=== PATIENT | female | born 1990 | race Caucasian/White ===

== ENCOUNTER 2019-04-30 17:45 | Emergency (ER) | payer SELFPAY ==
[2019-04-30 17:51] VITALS: BP 107/77; PULSE 101; RESP 18; TEMP 36.4; O2SAT 97; BMI 25.0
--- NOTE | 2019-04-30 22:55 | ED_ITS ---
Entered by Nanda Sprague, acting as scribe for Glen Beltre MD Apr 30, 2019 17:45 HPI - Psych General: Chief Complaint: Psychiatric Symptoms Stated Complaint: mhe Time Seen by Provider: 04/30/19 22:50 Source: patient Mode of arrival: ambulatory Limitations: no limitations History of Present Illness: HPI Narrative: 28 yo f came to the er for meds refill. Pt states that she needs to go to the stress unit because she is homeless. complaint: other Duration: constant Relieving factors: none Exacerbating factors: none Associated psychiatric symptoms: none Associated symptoms: Reports no associated symptoms; Deny depression Review of Systems General: Reports: other (negative unless marked) Const: Denies: fever, chills, body aches or change in appetite Eyes: Denies: blurry vision or eye discomfort ENMT: Denies: throat pain or dental pain Card: Denies: chest pain Resp: Denies: shortness of breath GI: Denies: abdominal pain, nausea, vomiting or diarrhea : Denies: painful urination Musc: Denies: neck pain or back pain Skin/Breast: Denies: rash Neuro: Denies: headache Psych: Denies: depression Antoine/Lymph: Denies: easy bruising All/Imm: Denies: hives PFSH ED PFSH: Statuses (acute, chronic, etc) shown below reflect problem list status as previously entered and may not be historically accurate Social History Smoking and tobacco status: current every day smoker Female Reproductive History: Date of last menstrual period: 04/30/19 Physical Exam Const: COMMON NORMALS: no apparent distress, oriented x3 and healthy appearing HENMT: COMMON NORMALS: normocephalic and head/scalp atraumatic HEAD & SCALP: normocephalic and atraumatic Eye: COMMON NORMALS: PERRL and EOMs intact bilaterally PUPIL: Yes PERRL Neck/C-Spine: COMMON NORMALS: full ROM and supple Chest: COMMONS NORMALS: inspection of chest normal and palpation of chest normal Resp: COMMON NORMALS: normal respiratory effort, no retractions, no use of accessory muscles and clear to auscultation bilaterally AUSCULTATION: clear to auscultation bilaterally Cardio: COMMON NORMALS: regular rate, regular rhythm and no murmurs RATE: regular rate RHYTHM: regular rhythm GI: COMMON NORMALS: normal to inspection, nondistended, normoactive bowel sounds, soft to palpation, non-tender and no masses PALPATION: Yes soft Extremity: COMMON NORMALS: normal to inspection and full ROM Neuro: COMMON NORMALS: oriented x3, moves all extremities and no focal motor deficits Psych: COMMON NORMALS: mental status grossly normal, thought process normal and cooperative THOUGHT PROCESS: normal thought process Skin: COMMON NORMALS: no rashes or lesions noted and no wounds GENERAL SKIN EXAM: no rashes or lesions noted MDM - Psych MDM Narrative: Medical decision making narrative: Patient presents here with depression. Her main complaint she stated to me was that she needed a place to stay tonight. She denied any suicidality or homicidality. I informed her she does not meet criteria for admission. Patient refused any refills for meds. Patient is stable for discharge. Discharge Plan Discharge Patient Disposition: Home, Self-Care Clinical Impression: Depression Qualifiers: Depression Type: unspecified Qualified Code(s): F32.9 - Major depressive disorder, single episode, unspecified Condition: Stable Discharge Orders: Discharge Order (Routine); Ordered 04/30/19 Ordered By: Glen Beltre Discharge Diet: Advance as tolerated Discharge Activity: Resume usual activity Patient Instructions: Depression (ED) Discharge Date/Time: 04/30/19 23:18 Coding Level of Care Code ED Community Arts Worker for Calude Martinez The documentation recorded by the Celestine solares Stephanie Lyn, accurately reflects the service I personally performed and the decisions made by , Glen Beltre MD Apr 30, 2019 17:45
[2019-04-30] MEDS: haloperidol 5 mg Tablet PO (23:12)
--- NOTE | 2019-04-30 23:15 | PC.NURSE ---
Nurse went in to discharge pt and pt very hostile towards staff-unhappy with the fact that she is not being admitted. Pt did not allow nurse to take vital signs. Pt did not sign discharge paperwork. Pt did not take discharge paperwork with her. Pt appeared alert and oriented upon departure.
== END 2019-04-30 23:18 | disposition home or self-care (01) ==
PROVIDERS: Emergency Provider Emergency Medicine
DX: F32.9 Major depressive disorder, single episode, unspecified (principal); F17.210 Nicotine dependence, cigarettes, uncomplicated
CPT/HCPCS: 99281; 99283

== ENCOUNTER 2019-05-01 11:16 | Inpatient (IN) | payer SELFPAY ==
--- NOTE | 2019-05-01 11:18 | ED_ITS ---
Entered by Roxana Phillips, acting as scribe for Manohar Tyler DO HPI - General Adult General: Chief complaint: Allergic Reaction Stated complaint: reaction to haldol/SI Time Seen by Provider: 05/01/19 11:18 Source: EMS Mode of arrival: EMS Limitations: no limitations History of Present Illness: HPI narrative: pt states she is having a reaction to Haldol. pt states this occurred in the past when giving haldol. pt states it is hard to open mouth and move neck due to jaw being locked. pt denies any other symptoms at this time. MD complaint: lock jaw Onset (ago): day(s) (last night) Location: mouth Radiation: non-radiation Severity: moderate Pain Consistency: constant Relieving factors: none Exacerbating factors: movement (of jaw) Treatments prior to arrival: none Review of Systems General: Reports: 10 or more systems reviewed and unremarkable except in HPI and below PFSH ED PFSH: Statuses (acute, chronic, etc) shown below reflect problem list status as previously entered and may not be historically accurate Social History Smoking and tobacco status: current every day smoker Female Reproductive History: Date of last menstrual period: 04/30/19 Physical Exam Const: COMMON NORMALS: no apparent distress, average body habitus, oriented x3, no limitations, healthy appearing, alert and well nourished Eye: COMMON NORMALS: PERRL, EOMs intact bilaterally, conjunctivae normal, no scleral icterus, no papilledema, normal visual piedra by confrontation and fundi normal bilaterally CONJUNCTIVA: Yes conjunctivae normal PUPIL: Yes PERRL DIRECT OPHTHALMOSCOPY: Yes no papilledema and Yes fundi normal bilaterally Neck/C-Spine: COMMON NORMALS: full ROM, no lymphadenopathy, supple, no meningeal signs, no JVD, thyroid normal and no carotid bruits THYROID: thyroid normal Chest: COMMONS NORMALS: inspection of chest normal and palpation of chest normal Resp: COMMON NORMALS: normal respiratory effort, no retractions, no use of accessory muscles, clear to auscultation bilaterally and percussion normal AUSCULTATION: clear to auscultation bilaterally PERCUSSION: percussion normal Cardio: COMMON NORMALS: no JVD, regular rate, regular rhythm, S1 normal heart sound, S2 normal heart sound, no gallops, no clicks, no murmurs, no rub and peripheral pulses 2+ throughout RATE: regular rate RHYTHM: regular rhythm HEART SOUNDS: S1 normal and S2 normal PERIPHERAL PULSES: pulses 2+ throughout GI: COMMON NORMALS: normal to inspection, nondistended, normoactive bowel sounds, soft to palpation, non-tender, no hepatosplenomegaly, no masses and no bruits PALPATION: Yes soft and Yes no hepatosplenomegaly : COMMON NORMALS: Yes no CVA tenderness and Yes external appearance normal BLADDER/KIDNEY EXAM: Yes no CVA tenderness Back/Pelvis: COMMON NORMALS: no CVA tenderness, thoracic and lumbar spine normal to inspection, no thoracic nor lumbar tenderness, thoraco-lumbar ROM normal and straight leg raise negative bilaterally Extremity: COMMON NORMALS: normal to inspection, full ROM, normal capillary refill, no joint enlargement, no clubbing, cyanosis or edema, no calf tenderness and no pedal edema Neuro: COMMON NORMALS: oriented x3 SENSORIUM/ORIENTATION: Yes alert MENINGEAL SIGNS: Yes no meningeal signs Skin: COMMON NORMALS: no rashes or lesions noted, no wounds, skin turgor normal, no jaundice, no petechiae and no mottling GENERAL SKIN EXAM: no rashes or lesions noted and turgor normal Course Vital Signs: Vital signs: Vital Signs Temperature 98.1 F 05/01/19 11:19 Pulse Rate 87 05/01/19 11:19 Respiratory Rate 18 05/01/19 11:19 Blood Pressure 125/83 05/01/19 11:19 Pulse Oximetry 99 05/01/19 11:19 [facility] - General Adult Lab Data: Labs: Lab Results 05/01/19 05/01/19 05/01/19 Range/Units 11:30 11:30 13:22 WBC 8.5 (4.0-10.0) 10^3/ uL RBC 4.97 (4.1-5.3) 10^6/u L Hgb 15.2 (11.5-15.3) g/dL Hct 47.4 H (37.0-47.0) % MCV 95.4 (81-99) fL MCH 30.6 (28.0-34.0) pg MCHC 32.1 (30.0-36.0) g/dL RDW 13.7 (12.1-15.1) % Plt Count 341 (130-400) 10^3/c mm MPV 9.9 (7.4-10.4) fL Neut % (Auto) 69.3 % Lymph % (Auto) 23.7 % [place] % (Auto) 5.2 % Eos % (Auto) 0.8 % Baso % (Auto) 0.6 % Neut # (Auto) 5.9 (1.8-7.7) 10^3/u L Lymph # (Auto) 2.0 (0.8-4.8) 10^3/u L [place] # (Auto) 0.4 (0.2-0.9) 10^3/u L Eos # (Auto) 0.1 (0.0-0.8) 10^3/u L Baso # (Auto) 0.1 (0.0-0.1) 10^3/u L Nucleated RBC % (a uto) 0 % Nucleated RBCs # 0.0 /100WBC Sodium 142 (136-145) mmol/L Potassium 3.4 L (3.5-5.1) mmol/L Chloride 102 (98-107) mmol/L Carbon Dioxide 26 (22-29) mmol/L Anion Gap 17.4 (5-19) BUN 14 (6-20) mg/dL Creatinine 0.6 (0.5-0.9) mg/dL GFR Calculation 119.0 (90-130) mL/min Glucose 87 (65-115) mg/dL Calcium 9.1 (8.5-10.5) mg/dL Total Bilirubin 0.2 (0.15-1.2) mg/dL AST 13 (0-32) U/L ALT 11 (0-33) U/L Alkaline Phosphata se 70 (35-105) IU/L Total Protein 7.3 (6.6-8.7) g/dL Albumin 4.2 (3.5-5.2) g/dL Globulin 3.1 (1.3-4.6) g/dL TSH 0.91 (0.27-4.20) uIU/ mL HCG, Qual Negative (Negative) Urine Color (Yellow) Urine Appearance (CLEAR) Urine pH (5-7) Ur Specific Gravit y (1.005-1.030) Urine Protein (Negative) Urine Glucose (UA) (Normal) Urine Ketones (Negative) Urine Occult Blood (Negative) Urine Nitrate (Negative) Urine Bilirubin (NEGATIVE) Urine Urobilinogen (Negative) mg/dL Ur Leukocyte Marisol ase (Negative) Urine RBC (0-2) /hpf Urine WBC (0-5) /hpf Ur Squamous Epith Cells (0-5) Urine Bacteria (NONE) Salicylates 3.4 (3-10) mg/dL Urine Opiates Scre en (Negative) ng/mL Acetaminophen < 5.0 L (10-30) ug/mL Ur Barbiturates Sc reen (Negative) ng/mL Ur Phencyclidine S crn (Negative) ng/mL Ur Amphetamines Sc reen (Negative) ng/mL U Benzodiazepines Scrn (Negative) ng/mL Urine Cocaine Scre en (Negative) ng/mL U Marijuana (THC) Screen (Negative) ng/mL Ethyl Alcohol < 10 (0-10) mg/dL 05/01/19 05/01/19 Range/Units 13:22 13:22 WBC (4.0-10.0) 10^3/ uL RBC (4.1-5.3) 10^6/u L Hgb (11.5-15.3) g/dL Hct (37.0-47.0) % MCV (81-99) fL MCH (28.0-34.0) pg MCHC (30.0-36.0) g/dL RDW (12.1-15.1) % Plt Count (130-400) 10^3/c mm MPV (7.4-10.4) fL Neut % (Auto) % Lymph % (Auto) % [place] % (Auto) % Eos % (Auto) % Baso % (Auto) % Neut # (Auto) (1.8-7.7) 10^3/u L Lymph # (Auto) (0.8-4.8) 10^3/u L [place] # (Auto) (0.2-0.9) 10^3/u L Eos # (Auto) (0.0-0.8) 10^3/u L Baso # (Auto) (0.0-0.1) 10^3/u L Nucleated RBC % (a uto) % Nucleated RBCs # /100WBC Sodium (136-145) mmol/L Potassium (3.5-5.1) mmol/L Chloride (98-107) mmol/L Carbon Dioxide (22-29) mmol/L Anion Gap (5-19) BUN (6-20) mg/dL Creatinine (0.5-0.9) mg/dL GFR Calculation (90-130) mL/min Glucose (65-115) mg/dL Calcium (8.5-10.5) mg/dL Total Bilirubin (0.15-1.2) mg/dL AST (0-32) U/L ALT (0-33) U/L Alkaline Phosphata se (35-105) IU/L Total Protein (6.6-8.7) g/dL Albumin (3.5-5.2) g/dL Globulin (1.3-4.6) g/dL TSH (0.27-4.20) uIU/ mL HCG, Qual (Negative) Urine Color Yellow (Yellow) Urine Appearance Clear (CLEAR) Urine pH 6.5 (5-7) Ur Specific Gravit y 1.010 (1.005-1.030) Urine Protein Neg (Negative) Urine Glucose (UA) Norm (Normal) Urine Ketones Negative (Negative) Urine Occult Blood 3+ H (Negative) Urine Nitrate Negative (Negative) Urine Bilirubin Neg (NEGATIVE) Urine Urobilinogen Norm (Negative) mg/dL Ur Leukocyte Marisol ase Negative (Negative) Urine RBC None (0-2) /hpf Urine WBC 0-4 H (0-5) /hpf Ur Squamous Epith Cells 0-4 H (0-5) Urine Bacteria Trace (NONE) Salicylates (3-10) mg/dL Urine Opiates Scre en Negative (Negative) ng/mL Acetaminophen (10-30) ug/mL Ur Barbiturates Sc reen Negative (Negative) ng/mL Ur Phencyclidine S crn Negative (Negative) ng/mL Ur Amphetamines Sc reen Positive H (Negative) ng/mL U Benzodiazepines Scrn Negative (Negative) ng/mL Urine Cocaine Scre en Negative (Negative) ng/mL U Marijuana (THC) Screen Negative (Negative) ng/mL Ethyl Alcohol (0-10) mg/dL Discharge Plan Discharge Patient Disposition: Admitted As Inpatient Clinical Impression: Depression with suicidal ideation Depression Qualifiers: Depression Type: major depressive disorder Major depression recurrence: recurrent Active/Remission status: currently active Major depression episode severity: severe Psychotic features: with psychotic features Qualified Code(s): F33.3 - Major depressive disorder, recurrent, severe with psychotic symptoms Condition: Fair Coding Level of Care Code ED Iron Cutter for Chg Fwd Exam Problem Focused The documentation recorded by the Alan solares Bridget Annette, accurately reflects the service I personally performed and the decisions made by me, Manohar Tyler, May 01, 2019 11:16
[2019-05-01 11:19] VITALS: BP 125/83; PULSE 87; RESP 18; TEMP 36.7; O2SAT 99; BMI 25.0
--- NOTE | 2019-05-01 11:35 | PC.NURSE ---
Pt states she is suicidal during triage. Pt is tearful and states she would like placement in the psychiatric unit. Pt denies having a current plan, but states she has slit her wrists in the past. Pt was moved to room 9, placed in paper scrubs, apartment house manager notified. Pt unable to provide urine sample at this time. Sitter at bedside, pt belongings placed in psych safe.
[2019-05-01] MEDS: diphenhydrAMINE 50 mg/mL SDV 1mL IVP (11:44)
[2019-05-01 11:48] LABS: Basophils # 0.1 10^3/uL (0.0-0.1); Basophils % 0.6 %; Eosinophils # 0.1 10^3/uL (0.0-0.8); Eosinophils % 0.8 %; Hematocrit 47.4 % (37.0-47.0); Hemoglobin 15.2 g/dL (11.5-15.3); Lymphocytes % 23.7 %; Mean Corpuscular HGB Conc 32.1 g/dL (30.0-36.0); Mean Corpuscular Hemoglobin 30.6 pg (28.0-34.0); Mean Corpuscular Volume 95.4 fL (81-99); Mean Platelet Volume 9.9 fL (7.4-10.4); Monocytes # 0.4 10^3/uL (0.2-0.9); Monocytes % 5.2 %; Neutrophils # 5.9 10^3/uL (1.8-7.7); Neutrophils % 69.3 %; Nucleated Red Blood Cells % 0 %; Platelet Count 341 10^3/cmm (130-400); Red Blood Count 4.97 10^6/uL (4.1-5.3); Red Cell Distribution Width 13.7 % (12.1-15.1); White Blood Count 8.5 10^3/uL (4.0-10.0)
[2019-05-01 12:09] LABS: Alanine Aminotransferase 11 U/L (0-33); Albumin Level 4.2 g/dL (3.5-5.2); Alkaline Phosphatase 70 IU/L (35-105); Anion Gap 17.4 (5-19); Aspartate Amino Transferase 13 U/L (0-32); Blood Urea Nitrogen 14 mg/dL (6-20); Calcium 9.1 mg/dL (8.5-10.5); Carbon Dioxide 26 mmol/L (22-29); Chloride 102 mmol/L (98-107); Globulin 3.1 g/dL (1.3-4.6); Glucose 87 mg/dL (65-115); Potassium 3.4 mmol/L (3.5-5.1); Salicylate 3.4 mg/dL (3-10); Sodium 142 mmol/L (136-145); Thyroid Stimulating Hormone 0.91 uIU/mL (0.27-4.20); Total Bilirubin 0.2 mg/dL (0.15-1.2); Total Protein 7.3 g/dL (6.6-8.7)
[2019-05-01 12:10] LABS: Acetaminophen < 5.0 ug/mL (10-30); Alcohol Level < 10 mg/dL (0-10)
--- NOTE | 2019-05-01 13:16 | PC.NURSE ---
Pt given clean catch kit and instructions and went to BR to give urine sample.
[2019-05-01 13:37] LABS: Add Urine Microscopic? YES; Bilirubin Urine Neg (NEGATIVE); Blood Urine 3+ (Negative); Glucose Urine UA Norm (Normal); HCG Qualitative Urine. Negative (Negative); Ketones Urine Negative (Negative); Leukocyte Esterase Urine Negative (Negative); Nitrate Urine Negative (Negative); Protein Urine Neg (Negative); Urine Appearance Clear (CLEAR); Urine Color Yellow (Yellow); Urobilinogen Urine Norm (Negative); pH Urine 6.5 (5-7)
[2019-05-01 13:42] LABS: Add Urine Culture? No; Bacteria Urine TRACE; Squamous Epithelial Cell Urine 0-4 (0-5); WBC Urine 0-4 /hpf (0-5)
[2019-05-01 13:54] LABS: Barbiturates Screen Urine Negative (Negative); Benzodiazepines Screen Urine Negative (Negative); Cocaine Screen Urine Negative (Negative); Opiate Screen Urine Negative (Negative); PCP Screen Urine Negative (Negative); THC Screen Urine Negative (Negative)
[2019-05-01 13:58] LABS: Amphetamines Screen Urine Positive (Negative)
--- NOTE | 2019-05-01 15:00 | PC.NURSE ---
Attempted to call report to NPU, no nurse able to take report at this time.
[2019-05-01 15:19] VITALS: BP 113/74; PULSE 90; RESP 17; TEMP 36.8; O2SAT 99
[2019-05-01] MEDS: hyDROXYzine 25 mg Capsule 50 MG PO (16:03)
[2019-05-01 21:07] VITALS: BP 97/51; PULSE 81; RESP 16; TEMP 36.6; O2SAT 97
[2019-05-02 06:00] VITALS: BP 101/48; PULSE 71; RESP 16; TEMP 36.7; O2SAT 96
[2019-05-02 14:00] VITALS: BP 99/54; PULSE 80; RESP 18; TEMP 36.6; O2SAT 97
[2019-05-02] MEDS: nicotine 2 mg Gum BUCCAL ×2 (14:04→19:47)
[2019-05-02 19:51] VITALS: BP 99/56; PULSE 74; RESP 19; TEMP 37.1; O2SAT 97
--- NOTE | 2019-05-02 20:48 | P.HP_ITS ---
Providers/Chief Complaint Admitting Physician: Pratik Bella MD Chief Complaint: reaction to haldol HPI NPU History of Present Illness Mariajose Caceres is a 28 year old female Meds NPU Home Medications Medication Instructions Recorded Confirmed Type No Known Home Medications 05/01/19 05/01/19 History Allergies Allergy/AdvReac Type Severity Reaction Status Date / Time gabapentin [From Neurontin] Allergy ADR-Agitate Verified 04/30/19 17:55 d PFSH NPU PFSH: Statuses (acute, chronic, etc) shown below reflect problem list status as previously entered and may not be historically accurate Social History Smoking and tobacco status: current every day smoker Other Psychiatric History: Other Psychiatric History: The patient had a prior hospitalization with suicidal depression. She believes she has been depressed well into early adolescence, if not into childhood. NHANES Social Connection/Isolation: Are you now , , , , never or living with a partner?: Never In a typical week, how many times do you talk on the telephone with family, friends, or neighbors?: Once per Week How often do you get together with friends or relatives?: Never How often do you attend yazdanism or rastafarian services?: 1-3 Times per Year Do you belong to any clubs or organizations such as yazdanism groups unions, fraternal or athletic groups, or school groups?: No Social isolation score (0-1 are the most socially isolated patients): 0 Social isolation score reviewed/action taken: Yes Mental Status Exam MSE Comments: The patient is sleepy (we had to wake her up to do this evaluation, for which we apologized) and oriented to person, place, time, and situation. Hygiene is disheveled. Sensorium is foggy but she understands what we tell her and what's going on around her. The patient exhibits poor eye contact but is cooperative and relates distantly to me. Behavior shows no psychomotor agitation. Mood is calm and depressed. Affect is flat, even numb. Thought processes are limited but they are free of racing, blocking or looseness of association. Speech is of normal rate but laconic, without dysarthria, aprosody or pressure. There is no inordinate latency of response. The patient denies auditory or visual hallucinations or delusions. The patient denies suicidal or homicidal ideation, plan or intent. Memory is intact for recent and remote events. Fund of knowledge is adequate given vocabulary. Insight and judgment were deemed to be good given the recognition of problems and desire for treatment. Vitals/I&O/Wt Last Vital Signs Temp 98.7 F 05/02/19 19:51 Pulse 74 05/02/19 19:51 Resp 19 H 05/02/19 19:51 BP 99/56 05/02/19 19:51 Pulse Ox 97 05/02/19 19:51 Weight last 48 hrs Weight 155 lb Data NPU : 05/01/19 11:30 05/01/19 11:30 A&P Assessment and plan (1) Depression: Status: Acute Qualifiers: Active/Remission status: currently active Depression Type: major depressive disorder Major depression episode severity: severe Major depression recurrence: recurrent Psychotic features: with psychotic features Qualified Code(s): F33.3 - Major depressive disorder, recurrent, severe with psychotic symptoms Code(s): F32.9 - Major depressive disorder, single episode, unspecified (2) Depression with suicidal ideation: Status: Acute Code(s): F32.9 - Major depressive disorder, single episode, unspecified; R45.851 - Suicidal ideations Involuntary Hold Information 96 Hour Hold: 96 Hour Involuntary Admission: No Attestations NPU Medical Necessity Statement*: The patient is just admitted in the throes of despair. I anticipate 5-7 midnights additional hospitalization. Time Spent in Patient Care: Greater than 35 minutes (>than 50% of time spent in counselling and/or direct pt care on unit) . Coding Level of Care Code Acute Slotter Operator for Claude Martinez Diagnoses Depression F33.3 Active/Remission status: currently active Depression Type: major depressive disorder Major depression episode severity: severe Major depression recurrence: recurrent Psychotic features: with psychotic features Depression with suicidal ideation F32.9; R45.851
[2019-05-03 06:00] VITALS: BP 112/65; PULSE 80; RESP 17; TEMP 36.6; O2SAT 98
[2019-05-03] MEDS: nicotine 2 mg Gum BUCCAL ×3 (09:00→16:15)
[2019-05-03 13:04] VITALS: BP 97/62; PULSE 66; RESP 18; TEMP 36.9; O2SAT 94
[2019-05-03] MEDS: hyDROXYzine 25 mg Capsule 50 MG PO (15:18)
[2019-05-03] MEDS: escitalopram 10 mg Tablet PO (16:18)
--- NOTE | 2019-05-03 17:52 | P.PN_ITS ---
Subjective NPU Subjective: Interval history: this is a progress note of April,. patient is without complaint. However she would like a trial of antidepressant. We discussed a variety of antidepressants and she chose Lexapro. Mental Status Exam MSE Comments: Appearance: hygiene is good; no gross neurological deficits., gait is unremarkable; AIMS=0 Speech: Speech is of normal rate and rhythm and easily understood. Thought processes: Thought processes are abstract. Judgment is adequate for safety. Associations: intact Psychotic processes: There is no indication of guarding or paranoia. There is no attention to the internal stimuli. Auditory and visual hallucinations are denied. Judgment: Insight is fair. Problem solving skills are adequate for safety. Orientation: The patient is oriented to person, place time and situation. Memory: no deficits noted in immediate, intermediate, or remote spheres. Attention: The patient is alert and interpersonally engaged. Language: Verbalizations are coherent. Fund of knowledge: Fund of knowledge is adequate. Affect/Mood: Affect is consistent with a euthymic mood. denied suicidal ideation Affective range is appropriate. Psychosis: perception unimpaired except through cognitive distortion; reality testing intact. Vitals/I&O/Wt Last Vital Signs Temp 98.0 F 05/04/19 10:40 Pulse 65 05/04/19 10:40 Resp 20 H 05/04/19 10:40 BP 109/76 05/04/19 10:40 Pulse Ox 97 05/04/19 10:40 Data NPU : 05/01/19 11:30 05/01/19 11:30 A&P Additional A&P Information patient had an adverse reaction to Haldol leading to her admission. She has a history of clinical depression. We are going to give her a trial on Lexapro before discharge. Plan: Initiate Lexapro 10 mg daily. Potential benefits and side effects of this medication were discussed in detail with use was agreed one by the patient. Contingency plan for intolerable or unexpected side effects is discontinuation. Involuntary Hold Information 96 Hour Hold: 96 Hour Involuntary Admission: No Attestations NPU Medical Necessity Statement*: patient will be in the hospital 1 more night to test tolerability of Lexapro Coding Level of Care Code Acute Hydro Generation Manager for Claude Martniez Comment this is a progress note for 05/03/2019.
[2019-05-03 21:23] VITALS: BP 98/63; PULSE 78; RESP 18; TEMP 37.2; O2SAT 96
[2019-05-04 06:00] VITALS: BP 109/76; PULSE 65; RESP 20; TEMP 36.7; O2SAT 97
[2019-05-04] MEDS: nicotine 2 mg Gum BUCCAL ×2 (07:38→10:06)
[2019-05-04] MEDS: escitalopram 10 mg Tablet PO (09:12)
--- NOTE | 2019-05-04 10:35 | P.DS_ITS ---
Diagnoses at Discharge Discharge Diagnosis (1) Depression: Status: Acute Qualifiers: Active/Remission status: currently active Depression Type: major depressive disorder Major depression episode severity: severe Major depression recurrence: recurrent Psychotic features: with psychotic features Qualified Code(s): F33.3 - Major depressive disorder, recurrent, severe with psychotic symptoms (2) Depression with suicidal ideation: Status: Acute Reason for Visit Reason for Visit: Reason For Visit: reaction to haldol Brief History: Mariajose Caceres Is a 28-year-old woman who was admitted to the psychiatric unit at her request. There is really no information regarding her admission explaining the necessity other than a statement saying that she needed refills on her medications. Hospital Course Discharge Summary The patient was restarted on her Lexapro 10 mg daily. It was well tolerated. She participated in all individual and group therapies as part of the unit protocol. Her next need was to be referred to a homeless long term and she is homeless. Since she had utilized all the services in the local area, it was decided that she should [facility] in [place]. Transportation was arranged. Involuntary Hold Information 96 Hour Hold: 96 Hour Involuntary Admission: No Mental Status Exam MSE Comments: Discharge Mental Status Exam: Appearance: hygiene is good; no gross neurological deficits., gait is unremarkable; AIMS=0 Speech: Speech is of normal rate and rhythm and easily understood. Thought processes: Thought processes are abstract. Judgment is adequate for safety. Associations: intact Psychotic processes: There is no indication of guarding or paranoia. There is no attention to the internal stimuli. Auditory and visual hallucinations are denied. Judgment: Insight is fair. Problem solving skills are adequate for safety. Orientation: The patient is oriented to person, place time and situation. Memory: no deficits noted in immediate, intermediate, or remote spheres. Attention: The patient is alert and interpersonally engaged. Language: Verbalizations are coherent. Fund of knowledge: Fund of knowledge is adequate. Affect/Mood: Affect is consistent with a euthymic mood. denied suicidal ideation Affective range is appropriate. Psychosis: perception unimpaired except through cognitive distortion; reality testing intact. Discharge Data Vitals: Last Vital Signs Temp 98.0 F 05/04/19 06:00 Pulse 65 05/04/19 06:00 Resp 20 H 05/04/19 06:00 BP 109/76 05/04/19 06:00 Pulse Ox 97 05/04/19 06:00 Discharge Plan Discharge Patient Disposition: Home, Self-Care Condition: Fair Prescriptions: New hydroxyzine HCl 10 mg Tablet 20 mg PO TID Qty: 90 RF: 4 escitalopram oxalate 10 mg Tablet 10 mg PO DAILY Qty: 30 RF: 4 Discharge Orders: Discharge Order (Routine); Ordered 05/04/19 Ordered By: Enrrique Lerma Discharge Diet: Usual diet Discharge Activity: Increase activity as tolerated Activity Restrictions/Additional Instructions: You had said that you will need to leave this area and that you are good with going to [place]. A ride will be provided to you. This is the [place] resource to help the homeless. If you are at risk of becoming homeless or currently without a safe, stable place to stay, please call [phone] or visit us at the [facility], [facility]. One of the [facility] service coordinators will meet with you to help identify resources and options that may meet your individual needs. Hours of Operation: Tuesday: 9am ? 5pm Tuesday: 9am ? noon and 1pm ? 5pm Tuesday: 9am ? 5pm : 10am ? 5pm Tuesday: 9am ? 5pm* *[facility] is closed the first Tuesday of every month Follow-up with a provider of choice within 3-5 days of discharge. Possible outpatient mental health provider: [facility]) [facility] No call-ahead is necessary, just walk in and be seen. Bring your I.D. and insurance information We accept Medicare, Medicaid, numerous private insurance providers and accept self-pay on a sliding scale for those who qualify. [facility] Hours: Tuesday-Tuesday, 7:30 a.m. to 3:30 p.m. Do ask for a referral for case management to assist with housing needs. Discharge Attestations NPU Time Spent in Discharge Care*: less than 30 min Coding Level of Care Code Acute [employer] [facility] Diagnoses Depression F33.3 Active/Remission status: currently active Depression Type: major depressive disorder Major depression episode severity: severe Major depression recurrence: recurrent Psychotic features: with psychotic features Depression with suicidal ideation F32.9; R45.851
[2019-05-04 10:40] VITALS: BP 109/76; PULSE 65; RESP 20; TEMP 36.7; O2SAT 97
== END 2019-05-04 12:35 | disposition home or self-care (01) | DRG 885 ==
LOC: ER 14:16 → NP 15:00
PROVIDERS: Admitting Provider Psychiatry & Neurology Psychiatry; Emergency Provider Family Medicine; Visit Provider Psychiatry & Neurology Psychiatry
DX: F33.3 Major depressive disorder, recurrent, severe with psychotic symptoms (principal); R45.851 Suicidal ideations; F17.210 Nicotine dependence, cigarettes, uncomplicated
CPT/HCPCS: 12345; 36415; 80053; 80307; 81001; 81025; 84443; 85025; 96375; 99284; A9270; J1200; J3490